=== PATIENT | male | born 1950 | race Caucasian/White ===

== ENCOUNTER 2024-01-16 17:11 | Inpatient (IN) | payer OTHER ==
[2024-01-16 18:11] LABS: BASO % 0.2 % (0-2.0); EOS % 0.1 % (0-4.5); HEMATOCRIT 29.3 % (35.4-49); HEMOGLOBIN 9.7 GM/dL (11.7-16.9); LYMPH % 10.3 % (8-40); MCH 28.5 pg (25.7-33.7); MEAN CELL VOLUME 86.2 fl (80-96); MEAN PLT VOLUME 9.8 fl (7.5-11.1); MONO % 5.5 % (3.8-10.2); NEUT % 83.9 % (42.8-82.8); PLATELET COUNT 216 10^3/uL (134-434); RDW 14.1 % (11.9-15.9); WHITE BLOOD COUNT 12.9 K/mm3 (4.0-10.0)
[2024-01-16 18:13] LABS: INR 1.23 (0.83-1.09); PROTHROMBIN TIME (PATIENT) 14.1 SEC (9.7-13.0)
[2024-01-16 18:16] LABS: ACTIVATED PTT 25.7 SECONDS (25.2-36.5)
[2024-01-16] MEDS ORDERED: PANTOPRAZOLE SODIUM 40 MG VIAL ONE (18:31)
[2024-01-16] MEDS ORDERED: ONDANSETRON 4 MG/2 ML VIAL ONE (18:31)
[2024-01-16 18:46] LABS: POTASSIUM 4.3 mmol/L (3.5-5.1)
[2024-01-16 18:48] LABS: CALCIUM 8.6 mg/dL (8.5-10.1)
[2024-01-16 18:49] LABS: ALBUMIN 3.4 g/dl (3.4-5.0); BLOOD UREA NITROGEN 70.2 mg/dL (7-18)
[2024-01-16] MEDS: SODIUM CHLORIDE 0.9% 500 ML INFUS.BAG IV ONE ×2 (18:49→20:21)
[2024-01-16] MEDS: PANTOPRAZOLE SODIUM 40 MG VIAL IVPUSH ONE (18:51)
[2024-01-16] MEDS: ONDANSETRON 4 MG/2 ML VIAL IVPUSH ONE (18:51)
[2024-01-16 18:52] LABS: CREATININE 1.2 mg/dL (0.55-1.3)
[2024-01-16 18:53] LABS: PH,URINE 5.5 (5.0-8.0); URINE APPEARANCE CLEAR; URINE BILIRUBIN NEGATIVE (NEGATIVE); URINE COLOR YELLOW; URINE GLUCOSE (UA) NEGATIVE (NEGATIVE); URINE KETONE NEGATIVE (NEGATIVE); URINE LEUK ESTERASE NEGATIVE (NEGATIVE); URINE NITRITE NEGATIVE (NEGATIVE); URINE PROTEIN NEGATIVE (NEGATIVE); URINE UROBILINOGEN 0.2 mg/dL (0.2-1.0)
[2024-01-16 18:54] LABS: BILIRUBIN,TOTAL 1.1 mg/dL (0.2-1); TOT PROT 6.2 g/dl (6.4-8.2)
[2024-01-16 19:28] LABS: MAGNESIUM 2.1 mg/dL (1.8-2.4)
[2024-01-16 20:33] LABS: BASO % 0.2 % (0-2.0); EOS % 0.2 % (0-4.5); HEMOGLOBIN 8.6 GM/dL (11.7-16.9); RDW 13.9 % (11.9-15.9)
[2024-01-16 20:38] LABS: LYMPH % 14.1 % (8-40); MCH 28.8 pg (25.7-33.7); MCHC 33.2 g/dl (32.0-35.9); MEAN CELL VOLUME 86.7 fl (80-96); MEAN PLT VOLUME 9.7 fl (7.5-11.1); MONO % 5.6 % (3.8-10.2); NEUT % 79.9 % (42.8-82.8); PLATELET COUNT 186 10^3/uL (134-434); WHITE BLOOD COUNT 10.4 K/mm3 (4.0-10.0)
[2024-01-16] MEDS: PANTOPRAZOLE SODIUM 80 MG in SODIUM CHLORIDE 100 ML IVPB SCH (21:52)
[2024-01-16] MEDS: DEXTROSE 5%-NORMAL SALINE 1,000 ML IV SCH (23:30)
[2024-01-17] MEDS ORDERED: NOREPINEPHRINE BITARTRATE 4 MG/4 ML ML IV ONE ×2 (00:57→10:20)
[2024-01-17] MEDS: NOREPINEPHRINE BITARTRATE 4,000 MCG in DEXTROSE 5%-WATER - 496 ML IV SCH (01:36)
[2024-01-17] MEDS: LACTATED RINGERS SOLUTION 1000 ML INFUS.BAG IV ONE (06:13)
[2024-01-17 07:59] LABS: HEMATOCRIT 25.8 % (35.4-49); HEMOGLOBIN 8.8 GM/dL (11.7-16.9); MCH 29.4 pg (25.7-33.7); MCHC 33.9 g/dl (32.0-35.9); MEAN CELL VOLUME 86.7 fl (80-96); MEAN PLT VOLUME 9.3 fl (7.5-11.1); PLATELET COUNT 176 10^3/uL (134-434); RBC 2.98 M/mm3 (4.00-5.60); RDW 13.9 % (11.9-15.9); WHITE BLOOD COUNT 9.1 K/mm3 (4.0-10.0)
[2024-01-17 08:02] LABS: INR 1.14 (0.83-1.09); PROTHROMBIN TIME (PATIENT) 13.1 SEC (9.7-13.0)
[2024-01-17 08:04] LABS: ACTIVATED PTT 23.6 SECONDS (25.2-36.5)
[2024-01-17 08:08] LABS: POTASSIUM 3.8 mmol/L (3.5-5.1)
[2024-01-17 08:12] LABS: ALBUMIN 2.9 g/dl (3.4-5.0); MAGNESIUM 2.1 mg/dL (1.8-2.4)
[2024-01-17 08:14] LABS: BILIRUBIN,DIRECT 0.3 mg/dL (0.0-0.2)
[2024-01-17 08:15] LABS: CREATININE 1.1 mg/dL (0.55-1.3); PHOSPHOROUS 2.4 mg/dL (2.5-4.9)
[2024-01-17 08:16] LABS: BILIRUBIN,TOTAL 1.3 mg/dL (0.2-1); TOT PROT 5.1 g/dl (6.4-8.2)
[2024-01-17 08:25] LABS: BLOOD UREA NITROGEN 44.2 mg/dL (7-18)
[2024-01-17] MEDS: MUPIROCIN 2% TOPICAL OINTMENT FOR DECOLONIZATION NS SCH (09:49)
[2024-01-17 12:11] LABS: HEMATOCRIT 25.7 % (35.4-49); HEMOGLOBIN 8.8 GM/dL (11.7-16.9); MCH 29.6 pg (25.7-33.7); MCHC 34.1 g/dl (32.0-35.9); MEAN CELL VOLUME 86.7 fl (80-96); PLATELET COUNT 175 10^3/uL (134-434); RBC 2.96 M/mm3 (4.00-5.60); WHITE BLOOD COUNT 7.7 K/mm3 (4.0-10.0)
[2024-01-17 16:01] VITALS: BMI 34.9
[2024-01-17 19:53] LABS: BASO % 0.4 % (0-2.0); EOS % 4.5 % (0-4.5); HEMATOCRIT 25.7 % (35.4-49); HEMOGLOBIN 8.6 GM/dL (11.7-16.9); LYMPH % 26.2 % (8-40); MCH 28.8 pg (25.7-33.7); MCHC 33.4 g/dl (32.0-35.9); MEAN CELL VOLUME 86.2 fl (80-96); MEAN PLT VOLUME 9.2 fl (7.5-11.1); MONO % 5.4 % (3.8-10.2); NEUT % 63.5 % (42.8-82.8); PLATELET COUNT 177 10^3/uL (134-434); RBC 2.98 M/mm3 (4.00-5.60); WHITE BLOOD COUNT 7.3 K/mm3 (4.0-10.0)
[2024-01-17] MEDS: CHLORHEXIDINE GLUCONATE 4% CLEANSER FOR DECOLONIZATION TP SCH (21:10)
[2024-01-18 07:29] LABS: INR 1.18 (0.83-1.09); PROTHROMBIN TIME (PATIENT) 13.3 SEC (9.7-13.0)
[2024-01-18 07:31] LABS: ACTIVATED PTT 19.1 SECONDS (25.2-36.5)
[2024-01-18 07:34] LABS: BASO % 0.7 % (0-2.0); EOS % 5.4 % (0-4.5); HEMATOCRIT 26.1 % (35.4-49); HEMOGLOBIN 8.8 GM/dL (11.7-16.9); LYMPH % 21.5 % (8-40); MCH 29.8 pg (25.7-33.7); MCHC 33.9 g/dl (32.0-35.9); MEAN PLT VOLUME 9.5 fl (7.5-11.1); MONO % 5.3 % (3.8-10.2); NEUT % 67.1 % (42.8-82.8); PLATELET COUNT 153 10^3/uL (134-434); RBC 2.96 M/mm3 (4.00-5.60); RDW 13.9 % (11.9-15.9)
[2024-01-18 07:50] LABS: POTASSIUM 4.7 mmol/L (3.5-5.1)
[2024-01-18 07:55] LABS: ALBUMIN 3.1 g/dl (3.4-5.0); CALCIUM 8.5 mg/dL (8.5-10.1); MAGNESIUM 2.1 mg/dL (1.8-2.4)
[2024-01-18 07:58] LABS: CREATININE 0.9 mg/dL (0.55-1.3); PHOSPHOROUS 2.6 mg/dL (2.5-4.9)
[2024-01-18 08:00] LABS: BILIRUBIN,TOTAL 1.4 mg/dL (0.2-1); TOT PROT 5.3 g/dl (6.4-8.2)
[2024-01-18] MEDS: PANTOPRAZOLE 40 MG TABLET PO SCH ×2 (10:17→21:21)
[2024-01-18 14:29] VITALS: RESP 18
[2024-01-19] MEDS: POLYETHYLENE GLYCOL (HEALTHYLAX) 3350 17 GM PACKET PO SCH (09:05)
[2024-01-19 09:25] LABS: BASO % 0.5 % (0-2.0); EOS % 5.6 % (0-4.5); HEMATOCRIT 27.3 % (35.4-49); HEMOGLOBIN 9.2 GM/dL (11.7-16.9); LYMPH % 20.9 % (8-40); MCH 29.5 pg (25.7-33.7); MCHC 33.9 g/dl (32.0-35.9); MEAN CELL VOLUME 87.2 fl (80-96); MEAN PLT VOLUME 9.6 fl (7.5-11.1); MONO % 4.8 % (3.8-10.2); NEUT % 68.2 % (42.8-82.8); PLATELET COUNT 177 10^3/uL (134-434); RBC 3.13 M/mm3 (4.00-5.60); WHITE BLOOD COUNT 9.1 K/mm3 (4.0-10.0)
[2024-01-19 13:55] VITALS: BP 120/72; PULSE 96; TEMP 99
== END 2024-01-19 13:35 | disposition home health service (06) | DRG 377 ==
LOC: JER 17:11 → JERBED 20:26 → JICU 22:53 → J6S 01-18 11:26
PROVIDERS: ADMIT Internal Medicine Pulmonary Disease; ATTEND Nurse Practitioner Acute Care
PROC: 0D568ZZ Destruction of Stomach, Via Natural or Artificial Opening Endoscopic (ICD-10-PCS; 2024-01-17)
PROC: 30233N1 Transfusion of Nonautologous Red Blood Cells into Peripheral Vein, Percutaneous Approach (ICD-10-PCS; 2024-01-17)
PROC: 05HY33Z Insertion of Infusion Device into Upper Vein, Percutaneous Approach (ICD-10-PCS; 2024-01-17)
PROC: 0DB68ZX Excision of Stomach, Via Natural or Artificial Opening Endoscopic, Diagnostic (ICD-10-PCS; principal; 2024-01-17 10:30)
DX: K25.0 Acute gastric ulcer with hemorrhage (principal); R57.8 Other shock; D62 Acute posthemorrhagic anemia; K92.0 Hematemesis; K57.91 Diverticulosis of intestine, part unspecified, without perforation or abscess with bleeding; I10 Essential (primary) hypertension; B96.81 Helicobacter pylori [H. pylori] as the cause of diseases classified elsewhere; K29.50 Unspecified chronic gastritis without bleeding; I95.9 Hypotension, unspecified
CPT/HCPCS: 0241U-QW; 36415; 36430; 71045-TC-FY; 74177-TC; 80048; 80053; 80076; 81003; 82272; 82308; 82941; 82962; 83605; 83735; 84100; 84484; 85025; 85027; 85610; 85730; 86850; 86900; 86901; 86922; 87040; 87086; 88305-TC; 88342-TC; 93005; 93010; 99285-25; P9058; Q9967

== ENCOUNTER 2024-02-12 04:58 | Day surgery (SDC) | payer OTHER ==
[2024-02-10 15:02] VITALS: BMI 33.5
[2024-02-12] MEDS ORDERED: LIDOCAINE VISCOUS 2% ORAL/TOP 15 ML UNIT-DOSE CUP ONE (11:06)
[2024-02-12] MEDS ORDERED: ETOMIDATE 20 MG/10 ML VIAL IVPUSH ONE (11:06)
[2024-02-12 11:58] VITALS: RESP 17
[2024-02-12 12:17] VITALS: BP 121/85; PULSE 68; TEMP 98.2
== END 2024-02-12 12:16 | disposition home or self-care (01) ==
LOC: JASU-ENDO 04:58
PROVIDERS: ATTEND Internal Medicine Gastroenterology
PROC: 0DB68ZX Excision of Stomach, Via Natural or Artificial Opening Endoscopic, Diagnostic (ICD-10-PCS; principal; 2024-02-12 11:30)
DX: Z13.810 Encounter for screening for upper gastrointestinal disorder (principal); K29.50 Unspecified chronic gastritis without bleeding; B96.81 Helicobacter pylori [H. pylori] as the cause of diseases classified elsewhere; Z87.11 Personal history of peptic ulcer disease
CPT/HCPCS: 88305-TC; 88342-TC

== ENCOUNTER 2024-05-27 16:53 | Emergency (ER) | payer OTHER ==
[2024-05-27 17:13] VITALS: BP 103/63; PULSE 102; RESP 19; TEMP 98.4; BMI 33.9
[2024-05-27] MEDS ORDERED: ACETAMINOPHEN 1000 MG/100 ML BAG IVPB ONE (18:04)
[2024-05-27] MEDS ORDERED: ACETAMINOPHEN INJECTION 100 ML ONE (18:36)
[2024-05-27] MEDS ORDERED: ALBUTEROL SO4 2.5/IPRATROPIUM 0.5 INH SOL 3 ML VIAL.NEB. NEB ONE ×2 (19:53→20:18)
[2024-05-27] MEDS: ALBUTEROL SO4 2.5/IPRATROPIUM 0.5 INH SOL 3 ML VIAL.NEB. NEB ONE ×2 (19:59→20:15)
== END 2024-05-27 21:01 | disposition left against medical advice (07) ==
LOC: JER 16:53
PROC: 3E0F7GC Introduction of Other Therapeutic Substance into Respiratory Tract, Via Natural or Artificial Opening (ICD-10-PCS; principal; 2024-05-27)
DX: R05.9 Cough, unspecified (principal); R00.0 Tachycardia, unspecified; M25.471 Effusion, right ankle; M25.472 Effusion, left ankle; Z20.822 Contact with and (suspected) exposure to COVID-19
CPT/HCPCS: 0241U-QW; 71045-TC-FY; 93005; 93010; 94640; 99285-25

== ENCOUNTER 2024-11-09 15:19 | Emergency (ER) | payer OTHER ==
[2024-11-09 15:45] VITALS: BP 136/70; PULSE 84; RESP 18; TEMP 98.5; BMI 33.9
== END 2024-11-09 16:26 | disposition home or self-care (01) ==
LOC: JER 15:19 → JERFT 15:19
DX: H92.02 Otalgia, left ear (principal)
CPT/HCPCS: 99283-25